=== PATIENT | male | born 1965 | race Caucasian/White ===

== ENCOUNTER 2018-03-17 10:46 | Emergency (ER) | payer OTHER ==
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
[2018-03-17 11:54] LABS: INR 2.31 (0.83-1.16); PROTIME(PATIENT) 25.4 SEC (12.0-15.0)
[2018-03-17 12:41] VITALS: BP 151/85
== END 2018-03-17 13:05 | disposition home or self-care (01) ==
DX: R06.02 Shortness of breath (principal); T45.515A Adverse effect of anticoagulants, initial encounter

== ENCOUNTER 2018-09-15 16:18 | Emergency (ER) | payer OTHER ==
--- NOTE | 2018-09-15 17:05 | EDPHY ---
H & P Stated Complaint: Pt developed R arm nodule after bruise c paresthesia. Denies SOB. Time Seen by Provider: 09/15/18 16:40 HPI/ROS: CHIEF COMPLAINT: Right arm a nodule HISTORY OF PRESENT ILLNESS: The patient is a 52-year-old man with a history of factor 5 Leiden who is on Coumadin chronically for previous DVTs. He states that he developed large bruise 2 weeks ago for unknown reasons on his right medial forearm. It has since resolved but today he noticed a small nodule just distal to his elbow. It is not tender. Is not erythematous or warm. It is very superficial. He is worried about DVT. Severity: Moderate Modifying factors: None REVIEW OF SYSTEMS: Constitutional: denies: chills, fever, recent illness, recent injury EENTM: denies: blurred vision, double vision, nose congestion Respiratory: denies: cough, shortness of breath Cardiac: denies: chest pain, irregular heart rate, lightheadedness, palpitations Gastrointestinal/Abdominal: denies: abdominal pain, diarrhea, nausea, vomiting, blood streaked stools Genitourinary: denies: dysuria, frequency, hematuria, pain Musculoskeletal: denies: joint pain, muscle pain Skin: See HPI Neurological: denies: headache, numbness, paresthesia, tingling, dizziness, weakness Hematologic/Lymphatic: denies: blood clots, easy bleeding, easy bruising Immunologic/allergic: denies: HIV/AIDS, transplant 10 systems reviewed and negative except as noted EXAM: GENERAL: Well-appearing, well-nourished and in no acute distress. HEAD: Atraumatic, normocephalic. EYES: Pupils equal round and reactive to light, extraocular movements intact, sclera anicteric, conjunctiva are normal. ENT: TMs normal, nares patent, oropharynx clear without exudates. Moist mucous membranes. NECK: Normal range of motion, supple without lymphadenopathy or JVD. LUNGS: Breath sounds clear to auscultation bilaterally and equal. No wheezes rales or rhonchi. HEART: Regular rate and rhythm without murmurs, rubs or gallops. ABDOMEN: Soft, nontender, normoactive bowel sounds. No guarding, no rebound. No masses appreciated. BACK: No CVA tenderness, no spinal tenderness, step-offs or deformities EXTREMITIES: Very small nodule just distal and medial to the elbow. Rubbery. Nontender. Not erythematous. Normal range of motion, no pitting or edema. No clubbing or cyanosis. NEUROLOGICAL: Cranial nerves II through XII grossly intact. Normal speech, normal gait. 5/5 strength, normal movement in all extremities, normal sensation , normal reflexes PSYCH: Normal mood, normal affect. SKIN: Warm, dry, normal turgor, no visible rashes or lesions. Source: Patient Exam Limitations: No limitations - Personal History Current Tetanus/Diphtheria Vaccine: Yes Tetanus Vaccine Date: 2009 - Medical/Surgical History Hx Asthma: No Hx Chronic Respiratory Disease: No Hx Diabetes: No Hx Cardiac Disease: No Hx Renal Disease: No Hx Cirrhosis: No Hx Alcoholism: No Hx HIV/AIDS: No Hx Splenectomy or Spleen Trauma: No Other PMH: h/o blood clots - Family History Significant Family History: No pertinent family hx - Social History Smoking Status: Never smoked Alcohol Use: Sober Drug Use: None Constitutional: Initial Vital Signs Temperature (C) 36.8 C 09/15/18 16:25 Heart Rate 78 09/15/18 16:25 Respiratory Rate 18 09/15/18 16:25 Blood Pressure 129/90 H 09/15/18 16:25 O2 Sat (%) 94 09/15/18 16:25 O2 Delivery Mode Room Air Allergies/Adverse Reactions: No Known Allergies Allergy (Verified 09/15/18 16:23) Home Medications: Medication Instructions Recorded Warfarin Sodium 09/15/18 Medical Decision Making - Diagnostics Imaging: Discussed imaging studies w/ infant caregiver Radiologist ED Course/Re-evaluation: This nodule is very superficial. May be more consistent with superficial thrombophlebitis or lymph node. Patient is requesting ultrasound and that we check his INR. 6:20 p.m. We discussed the patient's ultrasound results. He is reassured. His INR is elevated. He states that he will take a half dose of his Coumadin tonight. He will then follow up with his primary. We discussed indications for returning. Differential Diagnosis: Partial list of the Differential diagnosis considered include but were not limited to; superficial thrombophlebitis, lymphadenopathy, fatty tumor and although unlikely based on the history and physical exam, I also considered DVT , abscess, foreign body, calcifications. I discussed these differential diagnoses and the plan with the patient as well as the usual and expected course. The patient understands that the diagnosis is provisional and that in medicine we are not always correct and that further workup is often warranted. Usual and customary warnings were given. All of the patient's questions were answered. The patient was instructed to return to the emergency department should the symptoms at all worsen or return, otherwise to followup with the physician as we discussed. Departure - Departure Disposition: Home, Routine, Self-Care Clinical Impression: Factor 5 Leiden mutation, heterozygous Overdose of coumadin Qualifiers: Encounter type: initial encounter Injury intent: accidental or unintentional Qualified Code(s): T45.511A - Poisoning by anticoagulants, accidental ( unintentional), initial encounter Condition: Fair Instructions: Warfarin (By mouth) Referrals: NONE *PRIMARY CARE P,. [Primary Care Provider] - As per Instructions Sandra Lobo MD [Retired Resigned] - 2-3 days, if not improved
[2018-09-15 18:20] LABS: INR 2.84 (0.83-1.16); PROTIME(PATIENT) 29.7 SEC (12.0-15.0)
[2018-09-15 18:29] VITALS: BP 120/80
== END 2018-09-15 18:29 | disposition home or self-care (01) ==
DX: D68.2 Hereditary deficiency of other clotting factors (principal); T45.511A Poisoning by anticoagulants, accidental (unintentional), initial encounter; Z79.01 Long term (current) use of anticoagulants